=== PATIENT | female | born 1970 | race Caucasian/White ===

== ENCOUNTER → 2016-04-05 | Outpatient (CLI) | payer BC ==
[~2016-04-05] VITALS: Ht 170.2 cm; Wt 61.2 kg
[~2016-04-05] MED LIST: EFFEXOR37.5 MG PO; LO LOESTRIN FE1 EACH PO; TYLENOL EXTRA500 MG PO
== END | disposition home or self-care (01) ==
LOC: AMB 10:51
PROC: 0DBE8ZZ Excision of Large Intestine, Via Natural or Artificial Opening Endoscopic (ICD-10-PCS; principal; 2016-04-05)
DX: R19.7 Diarrhea, unspecified (principal); D12.2 Benign neoplasm of ascending colon; K64.9 Unspecified hemorrhoids
CPT/HCPCS: 88305; B4087